=== PATIENT | male | born 1965 | race Caucasian/White ===

== ENCOUNTER 2016-06-29 10:16 | Day surgery (SDC) | payer OTHER ==
--- NOTE | ~2016-06-29 | EGD ---
EGD REPORT [facility] [address] [id number] NAME: CALEB CHURCH : [birth year] [place]US : [place] [facility] [place] [id number] AGE: 50 ADM/REG DATE : 06/29/16 MR#: [id number] REPORT SERV DATE: 06/29/16 DICTATED BY: MICHAEL MORENO DATE: 06/29/16 REPORT STATUS : Draft TRANSCRIBED BY: [facility] DATE: 06/29/16 [facility] Patient Name: Caleb Church Date of : 1965 Attending MD: SUKHWINDER MORENO MD Procedure Date No Time: 06/29/2016 Procedure: Colonoscopy Indications: Screening for colorectal malignant neoplasm, This is the patient's first colonoscopy Referring MD: JIMENA MCKEON MD Medicines: See the Anesthesia note for documentation of the administered medications Complications: No immediate complications. Estimated blood loss: None. Procedure: Pre-Anesthesia Assessment: - ASA Grade Assessment: II - A patient with mild systemic disease. - Prior to the procedure, a History and Physical was performed, and patient medications and allergies were reviewed. The patient's tolerance of previous anesthesia was also reviewed. The risks and benefits of the procedure and the sedation options and risks were discussed with the patient. All questions were answered, and informed consent was obtained. Prior Anticoagulants: The patient has taken no previous anticoagulant or antiplatelet agents. After reviewing the risks and benefits, the patient was deemed in satisfactory condition to undergo the procedure. After I obtained informed consent, the scope was passed under direct vision. Throughout the procedure, the patient's blood pressure, pulse, and oxygen saturations were monitored continuously. The PCF [id number] was introduced through the anus and advanced to the terminal ileum. The ileocecal valve, appendiceal orifice, terminal ileum and rectum were photographed. The entire colon was examined. The colonoscopy was performed without difficulty. The patient tolerated the procedure well. The quality of the bowel preparation was adequate. Findings: The perianal and digital rectal examinations were normal. The terminal ileum appeared normal. Non-bleeding internal hemorrhoids were found during retroflexion and were Grade I (internal hemorrhoids that do not prolapse). No other significant abnormalities were identified in a careful examination of the remainder of the colon. EGD REPORT [address] [address] NAME: CALEB CHURCH : [birth year] STATUS : REG [facility]#: [id number] AGE: 50 ADM/REG DATE : 06/29/16 MR#: [id number] REPORT SERV DATE: 06/29/16 DICTATED BY: MICHAEL MORENO DATE: 06/29/16 REPORT STATUS : Draft TRANSCRIBED BY: [employer] DATE: 06/29/16 Impression: - The examined portion of the ileum was normal. - Non-bleeding internal hemorrhoids. Recommendation: - Patient has a contact number available for emergencies. The signs and symptoms of potential delayed complications were discussed with the patient. Return to normal activities tomorrow. Written discharge instructions were provided to the patient. - Regular diet. - Discharge patient to home. - Continue present medications. - Repeat colonoscopy in 10 years for surveillance. Procedure Code(s): --- Professional --- 57809, Colonoscopy, flexible, proximal to splenic flexure; diagnostic, with or without collection of specimen(s) by brushing or washing, with or without colon decompression (separate procedure) Diagnosis Code(s): --- Professional --- K64.0, First degree hemorrhoids Z12.11, Encounter for screening for malignant neoplasm of colon CPT copyright 2013 [employer]. All rights reserved. The codes documented in this report are preliminary and upon director of contracts review may be revised to meet current compliance requirements. SUKHWINDER MORENO MD 06/29/2016 1:02 PM This report has been signed electronically. Number of Addenda: 0 Note Initiated On: 06/29/2016 11:56 AM Scope Withdrawal Time 0 hours 7 minutes 57 seconds [address] [id number]
[~2016-06-29 10:16] MED LIST: COZAAR100 MG PO; HUMALOG SC; LANTUS SC; LEVOTHYROXIN175 MCG PO; ZOCOR40 PO
== END 2016-06-29 23:59 | disposition home or self-care (01) ==
LOC: DMU 10:16
PROVIDERS: Internal Medicine Gastroenterology
PROC: 0DJD8ZZ Inspection of Lower Intestinal Tract, Via Natural or Artificial Opening Endoscopic (ICD-10-PCS; principal; 2016-06-29 12:00)
DX: Z12.11 Encounter for screening for malignant neoplasm of colon (principal); K64.0 First degree hemorrhoids; E11.9 Type 2 diabetes mellitus without complications; E66.9 Obesity, unspecified; I10 Essential (primary) hypertension; E03.9 Hypothyroidism, unspecified; E78.00 Pure hypercholesterolemia, unspecified; K42.9 Umbilical hernia without obstruction or gangrene; Z98.890 Other specified postprocedural states; Z79.899 Other long term (current) drug therapy; Z79.4 Long term (current) use of insulin
CPT/HCPCS: 82962